=== PATIENT | male | born 1940 | race Caucasian/White ===

== ENCOUNTER 2018-06-03 08:52 | Day surgery (SDC) | payer OTHER ==
[2018-06-03] MEDS ORDERED: NS 1,000 ML IV ONE (08:59)
[2018-06-03] MEDS ORDERED: FAMOTIDINE 20 MG TAB PO ONE (08:59)
[2018-06-03] MEDS ORDERED: diphenhydrAMINE 25 MG CAP PO ONE (08:59)
[2018-06-03] MEDS ORDERED: DIAZEPAM 5 MG TAB PO ONE (08:59)
[2018-06-03] MEDS ORDERED: ASPIRIN EC 325 MG TAB PO ONE (08:59)
[2018-06-03 09:44] LABS: PLATELET COUNT 193 10^3/uL (150-400)
[2018-06-03 10:03] LABS: INR 0.97 (0.83-1.16); PROTIME(PATIENT) 12.5 SEC (12.0-15.0)
--- NOTE | 2018-06-03 10:09 | PDPROPOC ---
Sedation Plan of Care Sedation Plan of Care: vital signs stable, mental status noted, patient educated of risks, benefits, alternatives, patient can tolerate sedation ASA Classification: ASA 2 Planned drugs: fentanyl, midazolam Mallampati Score: Class 2 Mallampati Reference Image: Patient passed 3-3-2 rule?: Yes
--- NOTE | 2018-06-03 10:10 | PDHPUP ---
History & Physical Update H&P update statement: This history and physical update is based on an assessment of the patient which was completed after admission or registration (within 24 hours), but prior to the surgery/procedure. H&P update: H&P reviewed & patient examined, no change in patient's condition since H&P completed
[2018-06-03] MEDS ORDERED: fentaNYL 100 MCG/2 ML INJ ONE (10:51)
[2018-06-03] MEDS ORDERED: IOPAMIDOL (ISOVUE-370) 150 ML BTL IV ONE (10:51)
[2018-06-03] MEDS ORDERED: LIDOCAINE 1% 300 MG/30 ML SDV ONE (10:51)
[2018-06-03] MEDS ORDERED: MIDAZOLAM 2 MG/2 ML VIAL ONE (10:51)
--- NOTE | 2018-06-03 12:23 | CPIP ---
[f rep st] INVASIVE CARDIAC PROCEDURE DATE OF PROCEDURE: 06/03/2018 PROCEDURE: Coronary angiography. INDICATION: Preoperative evaluation prior to aortic valve replacement. ACCESS: Patient was prepped and draped in sterile fashion. 1% lidocaine was used to anesthetize the right inguinal region. A 6-[place] introducer sheath was placed selectively into the right common fe moral artery via modified Seldinger technique. CORONARY ANGIOGRAPHY: A 6-[place] JL4 was advanced to the left main coronary artery and images obtain ed. The left main coronary artery bifurcated into an LAD and circumflex coronary arteries. In the d istal portion of the left main coronary artery, there is a discrete 50% stenosis present. The left a nterior descending coronary artery gave rise to 1 prominent diagonal branch. The left anterior desce nding coronary artery had a proximal 80% stenosis present, as well as a mid 85% stenosis present. Th e mid stenosis is right at the takeoff of the first diagonal artery creating a true bifurcation lesio n. The circumflex coronary artery was a large vessel. The circumflex coronary artery had a proximal segmental 75% stenosis present. A 6-[place] JR4 was advanced to the right coronary artery and images obtained. The right coronary artery was dominant. The right coronary artery had a single discrete 20% stenosis in the proximal segment. LEFT VENTRICULOGRAPHY: Left ventriculography was not performed, secondary to known severe aortic jose david nosis. COMPLICATIONS: None. CONCLUSIONS: 1. Severe left main, left anterior descending, and circumflex coronary artery disease. 2. Plan is for revascularization at the time of aortic valve replacement. /[id number]/MODL
[2018-06-03] MEDS ORDERED: ONDANSETRON 4 MG/2 ML VIAL IVP PRN (13:21)
[2018-06-03] MEDS ORDERED: ATROPINE SULFATE 1 MG/10 ML SYR IVP PRN (13:21)
[2018-06-03] MEDS ORDERED: NITROGLYCERIN 0.4 MG BTL SL PRN (13:21)
--- NOTE | 2018-06-03 16:22 | CPEKG ---
Test Reason : OPEN Blood Pressure : / mmHG Vent. Rate : 061 BPM Atrial Rate : 000 BPM P-R Int : 191 ms QRS Dur : 082 ms QT Int : 509 ms P-R-T Axes : 059 -16 150 degrees QTc Int : 513 ms Sinus arrhythmia Borderline left axis deviation Abnrm T, consider ischemia, anterolateral lds Prolonged QT interval Confirmed by Georgiana Kelly ([id number] on 06/03/2018 4:22:20 PM Referred By: Issa Melo Confirmed By:Georgiana Kelly
== END 2018-06-03 15:30 | disposition home or self-care (01) ==
LOC: FCATH 08:52
PROVIDERS: ATTEND Internal Medicine Cardiovascular Disease
PROC: 4A023N7 Measurement of Cardiac Sampling and Pressure, Left Heart, Percutaneous Approach (ICD-10-PCS; principal; 2018-06-03)
PROC: B2111ZZ Fluoroscopy of Multiple Coronary Arteries using Low Osmolar Contrast (ICD-10-PCS; principal; 2018-06-03)
DX: Z01.810 Encounter for preprocedural cardiovascular examination (principal); I35.0 Nonrheumatic aortic (valve) stenosis; I25.10 Atherosclerotic heart disease of native coronary artery without angina pectoris; E78.5 Hyperlipidemia, unspecified; D75.1 Secondary polycythemia; N18.3 Chronic kidney disease, stage 3 (moderate)
CPT/HCPCS: C1760; J1644; J2250; J3010; Q9967

== ENCOUNTER 2018-06-06 06:41 | Inpatient (IN) | payer OTHER ==
[~2018-06-06 06:41] MED LIST: ADENOSINE 6 MG/2 ML VIAL ONE; ALBUMIN 5% 250 ML BOTTLE IV ONE; AMINOCAPROIC ACID 5 GM/20 ML VIAL ONE; AMIODARONE HCL 150 MG/3 ML VIAL ONE; CALCIUM CHLORIDE 1 GM/10 ML INJ ONE; CARDIOPLEGIC SOLUTION 1,052.8 ML PF ONE; CITRATE DEXTROSE SOLN 500 ML BAG ONE; DOPamine/DEXTROSE 400 MG/250 ML BAG IV ONE; HEPARIN 10,000 UNIT/10 ML MDV (1,000 UNIT/ML) ONE; INSULIN REGULAR HUMAN 100 UNIT in NS 100 ML IV ONE; LIDOCAINE 2% 100 MG/5 ML SYR ONE; MAGNESIUM SULFATE 1 GM/2 ML VIAL ONE; MANNITOL 25% 12.5 GM/50 ML VIAL IVP ONE; MILRINONE/DEXTROSE/100 ML BAG IV ONE; NA BICARBONATE 50 MEQ/50 ML VIAL ONE; NITROGLYCERIN/D5W 50 MG/250 ML BOTTLE IV ONE; NOREPINEPHRINE BITARTRATE 16 MG in NS 250 ML IV ONE; PHENYLEPHRINE HCL 50 MG in NS 250 ML IV ONE; PROTAMINE SULFATE 50 MG/5 ML VIAL IVP ONE; SODIUM BICARBONATE 50 MEQ/50 ML SYR ONE; VERAPAMIL 5 MG, NITROGLYCERIN 2.5 MG, HEPARIN 500 UNIT, SODIUM BICARBONATE 0.2 MEQ in L... MISC ONE; ceFAZolin 1 GM VIAL ONE; methylPREDNISolone SOD SUCC 1 GM/8 ML VIAL ONE; niCARdipine/NACL/200 ML BAG IV ONE
[2018-06-06] MEDS ORDERED: PAPAVERINE HCL 60 MG/2 ML SDV ONE (06:42)
[2018-06-06] MEDS ORDERED: VERAPAMIL 5 MG/2 ML VIAL ONE (06:42)
[2018-06-06] MEDS ORDERED: MINERAL OIL 10 ML VIAL ONE ×2 (06:42→16:21)
[2018-06-06] MEDS ORDERED: LIDOCAINE 1% 2 ML INJ ID PRN ×2 (06:53→06:56)
[2018-06-06] MEDS ORDERED: niCARdipine/NACL 200 ML IV ONE ×2 (06:53→15:00)
[2018-06-06] MEDS ORDERED: AMINOCAPROIC ACID 5 GM/20 ML VIAL IV ONE ×2 (06:53→15:00)
[2018-06-06] MEDS ORDERED: CITRATE DEXTROSE SOLN 500 ML BAG MISC ONE ×2 (06:53→15:00)
[2018-06-06] MEDS ORDERED: ceFAZolin 2 GM/DEXTROSE 100 ML IV ONE (06:53)
[2018-06-06] MEDS ORDERED: LR 1,000 ML IV ONE (06:56)
[2018-06-06] MEDS ORDERED: MIDAZOLAM 2 MG/2 ML VIAL IVP ONE (07:48)
[2018-06-06] MEDS: MUPIROCIN 2% 22 GM OINT NS SCH ×2 (07:56→13:40)
[2018-06-06] MEDS ORDERED: DEXMEDETOMIDINE HCL 400 MCG in NS 100 ML IV ONE (08:00)
[2018-06-06] MEDS ORDERED: DEXAMETHASONE 4 MG/ML VIAL ONE (08:02)
[2018-06-06] MEDS ORDERED: REMIFENTANIL HCL 1 MG VIAL ONE (08:02)
[2018-06-06] MEDS ORDERED: PROPOFOL/EMULSION 500 MG/50 ML BOTTLE IV ONE ×2 (08:02→15:11)
[2018-06-06] MEDS ORDERED: fentaNYL 100 MCG/2 ML INJ ONE ×2 (08:02→15:07)
[2018-06-06] MEDS ORDERED: ROCURONIUM 100 MG/10 ML VIAL ONE (08:03)
[2018-06-06] MEDS ORDERED: PHENYLEPHRINE HCL 100 MCG/ML SYR ONE (08:03)
[2018-06-06] MEDS ORDERED: ALBUMIN 5% 250 ML BOTTLE IV ONE ×5 (11:25→20:30)
[2018-06-06] MEDS ORDERED: ONDANSETRON DISINTEGRATING 4 MG TAB PO PRN (12:19)
[2018-06-06] MEDS ORDERED: BISACODYL 10 MG SUPP PR PRN (12:19)
[2018-06-06] MEDS ORDERED: LACTULOSE 20 GM/30 ML UDCUP PO PRN (12:19)
[2018-06-06] MEDS ORDERED: POTASSIUM Cl (KCl) 50 ML IV PRN (12:19)
[2018-06-06] MEDS ORDERED: PANTOPRAZOLE SODIUM 40 MG VIAL IVP ONE (12:19)
[2018-06-06] MEDS ORDERED: ONDANSETRON 4 MG/2 ML VIAL IVP PRN (12:19)
[2018-06-06] MEDS ORDERED: ACETAMINOPHEN 325 MG TAB PO PRN (12:19)
[2018-06-06] MEDS ORDERED: ACETAMINOPHEN 650 MG SUPP PR PRN (12:19)
[2018-06-06] MEDS ORDERED: D50W 25 GM/50 ML SYR IVP PRN (12:19)
[2018-06-06] MEDS ORDERED: CEPACOL LOZENGE PO PRN (12:19)
[2018-06-06] MEDS ORDERED: MEPERIDINE 25 MG/0.5 ML AMP IVP PRN (12:19)
[2018-06-06] MEDS ORDERED: METOCLOPRAMIDE 10 MG/2 ML VIAL IVP PRN (12:19)
[2018-06-06] MEDS ORDERED: SODIUM CL NASAL 45 ML BTL EACHNARE PRN (12:19)
[2018-06-06] MEDS ORDERED: INSULIN REGULAR HUMAN 100 UNIT in NS 100 ML IV SCH (12:30)
[2018-06-06] MEDS ORDERED: NS 1,000 ML IV SCH (12:30)
[2018-06-06] MEDS ORDERED: niCARdipine/NACL/200 ML BAG IV ONE ×2 (12:46→14:53)
[2018-06-06] MEDS: fentaNYL 100 MCG/2 ML INJ IVP PRN (13:05)
[2018-06-06] MEDS ORDERED: NA BICARBONATE 50 MEQ/50 ML VIAL ONE ×2 (13:15→14:53)
[2018-06-06] MEDS ORDERED: NA BICARBONATE 50 MEQ/50 ML VIAL IV ONE (13:30)
[2018-06-06] MEDS: ALBUMIN 5% 250 ML IV PRN ×2 (13:37→17:47)
[2018-06-06] MEDS ORDERED: MAGNESIUM SULF 2 GM/WATER 50 ML BAG IV ONE (14:34)
[2018-06-06] MEDS ORDERED: MAGNESIUM SULF 1 GM/DEXTROSE 100 ML BAG IV ONE (14:34)
[2018-06-06] MEDS ORDERED: PROTAMINE SULFATE 50 MG/5 ML VIAL IVP ONE (14:52)
[2018-06-06] MEDS ORDERED: AMINOCAPROIC ACID 5 GM/20 ML VIAL ONE ×2 (14:52→14:56)
[2018-06-06] MEDS ORDERED: CALCIUM CHLORIDE 1 GM/10 ML INJ ONE ×2 (14:52→14:56)
[2018-06-06] MEDS ORDERED: MILRINONE/DEXTROSE/100 ML BAG IV ONE (14:52)
[2018-06-06] MEDS ORDERED: HEPARIN 10,000 UNIT/10 ML MDV (1,000 UNIT/ML) ONE ×2 (14:53→14:56)
[2018-06-06] MEDS ORDERED: ceFAZolin 1 GM VIAL ONE (14:54)
[2018-06-06] MEDS ORDERED: DOPamine/DEXTROSE 400 MG/250 ML BAG IV ONE ×2 (14:54→16:14)
[2018-06-06] MEDS ORDERED: NITROGLYCERIN/D5W 50 MG/250 ML BOTTLE IV ONE (14:54)
[2018-06-06] MEDS ORDERED: ADENOSINE 6 MG/2 ML VIAL ONE (14:54)
[2018-06-06] MEDS ORDERED: AMIODARONE HCL 150 MG/3 ML VIAL ONE ×3 (14:54→16:14)
[2018-06-06] MEDS ORDERED: SODIUM BICARBONATE 50 MEQ/50 ML SYR ONE (14:55)
[2018-06-06] MEDS ORDERED: CITRATE DEXTROSE SOLN 500 ML BAG ONE (14:56)
[2018-06-06] MEDS ORDERED: LIDOCAINE 2% 100 MG/5 ML SYR ONE (14:56)
[2018-06-06] MEDS ORDERED: MAGNESIUM SULFATE 1 GM/2 ML VIAL ONE ×2 (14:57→16:14)
[2018-06-06] MEDS ORDERED: methylPREDNISolone SOD SUCC 1 GM/8 ML VIAL ONE (14:57)
[2018-06-06] MEDS ORDERED: NOREPINEPHRINE BITARTRATE 16 MG in NS 250 ML IV ONE (15:00)
[2018-06-06] MEDS ORDERED: PHENYLEPHRINE HCL 50 MG in NS 250 ML IV ONE (15:00)
[2018-06-06] MEDS ORDERED: INSULIN REGULAR HUMAN 100 UNIT in NS 100 ML IV ONE (15:00)
[2018-06-06] MEDS ORDERED: MANNITOL 25% 12.5 GM/50 ML VIAL IVP ONE (15:00)
[2018-06-06] MEDS ORDERED: CARDIOPLEGIC SOLUTION 1,052.8 ML PF ONE (15:00)
[2018-06-06] MEDS ORDERED: VERAPAMIL 5 MG, NITROGLYCERIN 2.5 MG, HEPARIN 500 UNIT, SODIUM BICARBONATE 0.2 MEQ in L... MISC ONE (15:00)
[2018-06-06] MEDS ORDERED: EPINEPHrine 1 MG/10 ML SYR IVP ONE (16:14)
[2018-06-06] MEDS ORDERED: AMIODARONE HCL 200 ML IV ONE (17:24)
[2018-06-06] MEDS ORDERED: NOREPINEPHRINE BITARTRATE 16 MG in NS 250 ML IV SCH (19:00)
[2018-06-06] MEDS ORDERED: ALBUMIN 5% 250 ML IV ONE ×2 (21:30)
[2018-06-06] MEDS ORDERED: DEXMEDETOMIDINE HCL 400 MCG in NS 100 ML IV SCH (21:30)
[2018-06-06] MEDS ORDERED: ALBUMIN 5% 500 ML BOTTLE IV ONE (23:24)
[2018-06-06] MEDS ORDERED: ALBUMIN 5% 500 ML IV ONE (23:30)
[2018-06-06] MEDS ORDERED: AMIODARONE HCL 540 MG in D5W 300 ML IV ONE (23:45)
[2018-06-06] MEDS: ceFAZolin 2 GM/DEXTROSE 100 ML IV SCH (23:51)
[2018-06-07] MEDS: MUPIROCIN 2% 22 GM OINT NS SCH ×3 (00:22→21:12)
[2018-06-07] MEDS: HEPARIN 5,000 UNIT/0.5 ML INJ SC SCH (05:16)
[2018-06-07] MEDS ORDERED: ALBUMIN 5% 250 ML BOTTLE IV ONE ×2 (05:36→12:14)
[2018-06-07] MEDS ORDERED: ALBUMIN 5% 250 ML IV ONE ×4 (06:30→13:06)
[2018-06-07] MEDS ORDERED: FUROSEMIDE 20 MG/2 ML VIAL ONE (08:32)
[2018-06-07] MEDS ORDERED: FUROSEMIDE 20 MG/2 ML VIAL IVP ONE (08:45)
[2018-06-07] MEDS: ceFAZolin 2 GM/DEXTROSE 100 ML IV SCH ×2 (08:47→21:12)
[2018-06-07] MEDS ORDERED: PANTOPRAZOLE SODIUM 40 MG VIAL IVP ONE (09:00)
[2018-06-07] MEDS: ASPIRIN 81 MG CHEWABLE TAB PO SCH (10:09)
[2018-06-07] MEDS: PANTOPRAZOLE SODIUM 40 MG TAB PO SCH (10:10)
[2018-06-07] MEDS: fentaNYL 100 MCG/2 ML INJ IVP PRN (11:03)
[2018-06-07] MEDS ORDERED: ASPIRIN 81 MG CHEWABLE TAB TUBE PRN (12:19)
[2018-06-07] MEDS: HYDROCODONE/APAP 5/325 TAB PO PRN ×3 (16:00→21:00)
[2018-06-07] MEDS ORDERED: AMIODARONE HCL 200 MG TAB PO SCH (17:00)
[2018-06-07] MEDS: AMIODARONE HCL 200 MG TAB PO SCH (18:01)
[2018-06-07] MEDS ORDERED: ALBUMIN 5% 250 ML IV PRN (19:52)
[2018-06-08] MEDS: HYDROCODONE/APAP 5/325 TAB PO PRN ×4 (00:30→21:09)
[2018-06-08] MEDS: ASPIRIN 81 MG CHEWABLE TAB PO SCH (07:42)
[2018-06-08] MEDS: AMIODARONE HCL 200 MG TAB PO SCH ×2 (09:03→20:48)
[2018-06-08] MEDS: PANTOPRAZOLE SODIUM 40 MG TAB PO SCH (09:03)
[2018-06-08] MEDS: SENNOSIDES/DOCUSATE SODIUM TAB PO SCH ×2 (09:03→20:48)
[2018-06-08] MEDS: MUPIROCIN 2% 22 GM OINT NS SCH (10:50)
[2018-06-08] MEDS ORDERED: LR 1,000 ML IV SCH (19:30)
[2018-06-09] MEDS: HYDROCODONE/APAP 5/325 TAB PO PRN ×3 (01:56→11:08)
[2018-06-09] MEDS: AMIODARONE HCL 200 MG TAB PO SCH ×2 (09:07→21:32)
[2018-06-09] MEDS: FUROSEMIDE 20 MG TAB PO SCH (09:07)
[2018-06-09] MEDS: PANTOPRAZOLE SODIUM 40 MG TAB PO SCH (09:07)
[2018-06-09] MEDS: SENNOSIDES/DOCUSATE SODIUM TAB PO SCH ×2 (09:07→21:31)
[2018-06-09] MEDS: MAGNESIUM HYDROXIDE 30 ML UDCUP PO PRN (09:07)
[2018-06-09] MEDS: traMADol 50 MG TAB PO PRN ×2 (16:32→21:35)
[2018-06-10] MEDS: traMADol 50 MG TAB PO PRN ×2 (02:08→20:56)
[2018-06-10] MEDS: POLYETHYLENE GLYCOL 3350 17 GM PKT PO PRN (09:37)
[2018-06-10] MEDS: SENNOSIDES/DOCUSATE SODIUM TAB PO SCH ×2 (09:38→20:56)
[2018-06-10] MEDS: PANTOPRAZOLE SODIUM 40 MG TAB PO SCH (09:38)
[2018-06-10] MEDS: FUROSEMIDE 20 MG TAB PO SCH (09:38)
[2018-06-10] MEDS: POTASSIUM CL 10 MEQ TAB PO SCH (09:38)
[2018-06-10] MEDS: AMIODARONE HCL 200 MG TAB PO SCH (09:38)
[2018-06-10] MEDS ORDERED: WARFARIN SODIUM 2.5 MG TAB PO SCH (16:00)
[2018-06-10] MEDS ORDERED: WARFARIN SODIUM 2.5 MG TAB PO ONE (16:00)
[2018-06-10] MEDS: MAGNESIUM HYDROXIDE 30 ML UDCUP PO PRN (18:51)
[2018-06-11] MEDS: traMADol 50 MG TAB PO PRN ×2 (01:57→21:39)
[2018-06-11] MEDS ORDERED: BACITRACIN IRRIGATION/NS 50,000 UNITS/1,000 ML BTL IRR ONE (09:10)
[2018-06-11] MEDS ORDERED: NS 1,000 ML IV ONE (09:10)
[2018-06-11] MEDS ORDERED: ceFAZolin 2 GM/DEXTROSE 100 ML IV ONE (09:10)
[2018-06-11] MEDS: FUROSEMIDE 20 MG TAB PO SCH (10:07)
[2018-06-11] MEDS: ASPIRIN 81 MG CHEWABLE TAB PO SCH (10:07)
[2018-06-11] MEDS: PANTOPRAZOLE SODIUM 40 MG TAB PO SCH (10:08)
[2018-06-11] MEDS: POTASSIUM CL 10 MEQ TAB PO SCH (10:08)
[2018-06-11] MEDS: SENNOSIDES/DOCUSATE SODIUM TAB PO SCH ×2 (10:08→21:39)
[2018-06-11] MEDS ORDERED: IOPAMIDOL (ISOVUE-300) 100 ML BTL ONE (15:45)
[2018-06-11] MEDS ORDERED: BUPIVACAINE 0.75% 10 ML SDV ONE (15:45)
[2018-06-11] MEDS ORDERED: LIDOCAINE 1% 300 MG/30 ML SDV ONE (15:45)
[2018-06-11] MEDS ORDERED: ePHEDrine SULFATE 25 MG/5 ML SYR ONE (17:06)
[2018-06-11] MEDS ORDERED: PROPOFOL/EMULSION 500 MG/50 ML BOTTLE IV ONE (17:06)
[2018-06-11] MEDS ORDERED: WARFARIN SODIUM 2.5 MG TAB PO ONE ×2 (19:00→22:00)
[2018-06-12] MEDS: traMADol 50 MG TAB PO PRN ×3 (02:35→23:52)
[2018-06-12] MEDS ORDERED: FUROSEMIDE 20 MG/2 ML VIAL IVP ONE (08:46)
[2018-06-12] MEDS: ASPIRIN 81 MG CHEWABLE TAB PO SCH (09:10)
[2018-06-12] MEDS: PANTOPRAZOLE SODIUM 40 MG TAB PO SCH (09:10)
[2018-06-12] MEDS: SENNOSIDES/DOCUSATE SODIUM TAB PO SCH ×2 (09:11→20:07)
[2018-06-12] MEDS: POLYETHYLENE GLYCOL 3350 17 GM PKT PO PRN (15:00)
[2018-06-12] MEDS ORDERED: WARFARIN SODIUM 2.5 MG TAB PO ONE (16:00)
[2018-06-12] MEDS: METOPROLOL TARTRATE 25 MG TAB PO SCH (20:08)
[2018-06-12] MEDS: HEPARIN 5,000 UNIT/0.5 ML INJ SC SCH (23:52)
[2018-06-13] MEDS: HEPARIN 5,000 UNIT/0.5 ML INJ SC SCH (05:28)
[2018-06-13] MEDS: METOPROLOL TARTRATE 25 MG TAB PO SCH ×2 (08:36→21:12)
[2018-06-13] MEDS: ASPIRIN 81 MG CHEWABLE TAB PO SCH (08:36)
[2018-06-13] MEDS: PANTOPRAZOLE SODIUM 40 MG TAB PO SCH (08:36)
[2018-06-13] MEDS: SENNOSIDES/DOCUSATE SODIUM TAB PO SCH (08:36)
[2018-06-13] MEDS ORDERED: POTASSIUM CL 20 MEQ TAB PO SCH (09:00)
[2018-06-13] MEDS ORDERED: FUROSEMIDE 40 MG TAB PO SCH (09:00)
[2018-06-13] MEDS ORDERED: SENNOSIDES/DOCUSATE SODIUM TAB PO PRN (21:00)
[2018-06-13] MEDS: traMADol 50 MG TAB PO PRN (21:12)
[2018-06-14] MEDS: traMADol 50 MG TAB PO PRN (03:42)
[2018-06-14] MEDS: ASPIRIN 81 MG CHEWABLE TAB PO SCH (08:43)
[2018-06-14] MEDS: PANTOPRAZOLE SODIUM 40 MG TAB PO SCH (08:43)
[2018-06-14] MEDS: METOPROLOL TARTRATE 25 MG TAB PO SCH (08:43)
[2018-06-14] MEDS ORDERED: ATORVASTATIN CALCIUM 20 MG TAB PO SCH (09:00)
[2018-06-14] MEDS ORDERED: WARFARIN SODIUM 1 MG TAB PO ONE (16:00)
[2018-06-15] MEDS ORDERED: FUROSEMIDE 20 MG TAB PO SCH (09:00)
== END 2018-06-14 11:45 | DRG 219 ==
DX: I35.0 Nonrheumatic aortic (valve) stenosis (principal); I25.10 Atherosclerotic heart disease of native coronary artery without angina pectoris; I97.190 Other postprocedural cardiac functional disturbances following cardiac surgery; I22.1 Subsequent ST elevation (STEMI) myocardial infarction of inferior wall; I97.191 Other postprocedural cardiac functional disturbances following other surgery; I44.2 Atrioventricular block, complete; I97.120 Postprocedural cardiac arrest following cardiac surgery; I49.01 Ventricular fibrillation; J96.00 Acute respiratory failure, unspecified whether with hypoxia or hypercapnia; D62 Acute posthemorrhagic anemia; N18.3 Chronic kidney disease, stage 3 (moderate); E78.5 Hyperlipidemia, unspecified; D75.1 Secondary polycythemia; D69.6 Thrombocytopenia, unspecified

== ENCOUNTER → 2018-06-18 | Outpatient (CLI) | payer OTHER | LOC: FIMAGING 11:58 | PROVIDERS: ATTEND Thoracic Surgery (Cardiothoracic Vascular Surgery) | DX: Z95.1 Presence of aortocoronary bypass graft (principal); Z95.2 Presence of prosthetic heart valve; J90 Pleural effusion, not elsewhere classified ==

== ENCOUNTER → 2018-06-26 | Outpatient (CLI) | payer OTHER | LOC: FIMAGING 08:59 | PROVIDERS: ATTEND Thoracic Surgery (Cardiothoracic Vascular Surgery) | DX: J90 Pleural effusion, not elsewhere classified (principal); J98.11 Atelectasis; Z95.2 Presence of prosthetic heart valve; Z95.1 Presence of aortocoronary bypass graft ==

== ENCOUNTER → 2018-07-08 | Outpatient (CLI) | payer OTHER | LOC: FIMAGING 10:05 | PROVIDERS: ATTEND Thoracic Surgery (Cardiothoracic Vascular Surgery) | DX: Z95.2 Presence of prosthetic heart valve (principal); Z95.1 Presence of aortocoronary bypass graft; J90 Pleural effusion, not elsewhere classified; J98.11 Atelectasis ==

== ENCOUNTER → 2018-07-23 | Outpatient (CLI) | payer OTHER | LOC: FIMAGING 08:50 ==